=== PATIENT | male | born 1975 ===

== ENCOUNTER 2022-05-15 08:34 | Emergency (ER) | payer SELFPAY ==
--- NOTE | ~2022-05-15 | XR_ITS ---
EXAMINATION: XR RIBS, RIGHT CLINICAL INFORMATION: Fall with right rib pain COMPARISON: Chest radiograph 06/08/2017 TECHNIQUE: Single view chest with 4 additional views of the right ribs were obtained. FINDINGS: Lungs are clear. No consolidation, pneumothorax, or pleural effusion. The cardiomediastinal silhouette and pulmonary vasculature are normal. Osseous structures are unremarkable. Ribs are intact. No fractures are identified. Incidental note is made of 2 rounded calcifications adjacent to the chest wall beneath the clavicle of questionable significance but could be within the right shoulder joint or rotator cuff. If patient has shoulder pain shoulder radiographs may be XR/XR ribs RT min 3V w CXR1V IMPRESSION: Clear chest. No displaced rib fractures.
[2022-05-15 08:52] VITALS: BP 159/89; PULSE 71; RESP 20; TEMP 36.9; O2SAT 98; BMI 36.0
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
[2022-05-15] MEDS: Acetaminophen 325 MG TABLET 975 MG PO (11:12)
[2022-05-15] MEDS: Ibuprofen 600 MG TABLET PO (11:12)
[2022-05-15 11:32] VITALS: BP 128/71; PULSE 59; RESP 18; TEMP 36.6; O2SAT 95
== END 2022-05-15 12:21 | disposition home or self-care (01) ==
PROVIDERS: Emergency Provider Emergency Medicine
DX: S20.213A Contusion of bilateral front wall of thorax, initial encounter (principal); R42 Dizziness and giddiness; R51.9 Headache, unspecified; R07.81 Pleurodynia; V27.4XXA Motorcycle driver injured in collision with fixed or stationary object in traffic accident, initial encounter; Y93.9 Activity, unspecified; Y92.410 Unspecified street and highway as the place of occurrence of the external cause; Y99.9 Unspecified external cause status
CPT/HCPCS: 71101; 99283

== ENCOUNTER 2023-05-04 08:26 | Emergency (ER) | payer OTHER, SELFPAY ==
--- NOTE | ~2023-05-04 | XR_ITS ---
EXAMINATION: XR CHEST CLINICAL INFORMATION: Cough COMPARISON: Chest 05/15/2022 TECHNIQUE: AP upright portable view of the chest was obtained. 10:09 AM FINDINGS: Lung volumes are symmetric. No focal consolidation is seen. No evidence of pneumothorax, pleural effusion or overt pulmonary edema. The cardiac silhouette is mildly prominent. No acute osseous abnormalities are seen. XR/XR chest 1V IMPRESSION: Mildly prominent cardiac silhouette. No acute pulmonary findings are identified.
[2023-05-04 08:28] VITALS: BP 146/86; PULSE 80; RESP 20; TEMP 36.8; O2SAT 96; BMI 34.3
[2023-05-04 08:53] LABS: COVID-19 Test Negative (Negative); IDNOW Serial# BCCEAD1C
--- NOTE | 2023-05-04 10:01 | ED.GENADULT ---
HPI - General Adult General Chief complaint: Upper Respiratory Symptoms Stated complaint: nasal pressure Time Seen by Provider: 05/04/23 09:04 Source: patient Mode of arrival: ambulatory Limitations: no limitations History of Present Illness HPI narrative: 47 year old male remote hx of asthma presents w/ congestion, sinus pressure, cough, fatigue, malaise, subjective fevers and chills. All of which started 2 days ago and have been worsening. Patient denies any sick contacts. He reports shortness of breath with exertion however not at rest. Describes chest pressure as substernal pressure, nonradiating, not associated with pain particularly. Denies headache, vision changes, dizziness, weakness. Related Data Previous Rx's Medication Instructions Recorded albuterol sulfate 90 mcg/actuation 2 inh inhalation Q4-6H PRN 05/04/23 breath activated powder inhaler shortness of breath or wheezing #1 ea amoxicillin 875 mg-potassium 1 tab PO BID 7 days #14 tabs 05/04/23 clavulanate 125 mg tablet prednisone 20 mg tablet 40 mg (2 x 20 mg) PO DAILY 5 days 05/04/23 #10 tabs Allergies Allergy/AdvReac Type Severity Reaction Status Date / Time No Known Allergies Allergy Unverified 05/10/20 19:21 [No Known Allergies*] Review of Systems Review of Systems: Constitutional : No Weight loss, No Fever, No Chills, No Fatigue, No Malaise ENT/Mouth : No sore throat, No Rhinorrhea Eyes: No Eye Pain, No Swelling, No Redness Cardiovascular : No Chest Pain, No SOB, No Dyspnea on Exertion, No Orthopnea, No Edema, No Palpitations Respiratory : No Cough, No Sputum, No Wheezing Gastrointestinal : No Nausea, No Vomiting, No Diarrhea, No Constipation, No abdominal Pain, No Hematochezia, No Melena Genitourinary : No Dysuria, No Urinary Frequency, No Hematuria, Musculoskeletal : No joint pain, No Myalgias, No Joint Swelling Skin : No Skin Lesions, No rash Neuro : No Weakness, No Numbness, No Dizziness, No Headache Psych : No Anxiety/Panic, No Depression All other systems reviewed and are negative Yes all other systems are reviewed and are negative PMFSH Past Medical History Attestation statement: The following information was validated with the patient. Source: old records reviewed and nursing notes reviewed Social History Social History (Reviewed 05/15/22 @ 10:32 by ANA PAULA De Souza Advance Directives: No Advance Directives Information Provided: Yes Physical Exam ED Vital Signs: Vital Signs - 24 hr 05/04/23 08:28 05/04/23 12:32 Temperature 98.3 F 98.4 F Pulse Rate 80 74 Respiratory Rate 20 20 Blood Pressure 146/86 H 125/82 Pulse Oximetry 96 95 Oxygen Delivery Method Room Air Room Air BMI result Body Mass Index 34.3 Vital signs stable Appearance: Alert.? Oriented X3.? No acute distress.? Head: Normocephalic, atraumatic, no step-offs or deformities Eyes: Pupils equal, round and reactive to light.? CVS: Normal heart rate and rhythm.? Pulses normal.? Respiratory: No respiratory distress.? Breath sounds normal.? Abdomen: Soft and nontender.? Skin: Skin warm and dry.? Normal skin color.? Normal skin turgor.? Extremities: No lower extremity edema.? No calf ttp. 5/5 strength to bilateral upper and lower extremities Neuro: Oriented X 3.? No motor deficit.? No sensory deficit. CN 2-12 intact Course Reevaluation(s) Reevaluation #1: CBC appears to be within normal limits. Chemistry no acute findings requiring intervention. Troponin negative x2, EKG nonischemic, BNP within normal limits. Perc negative no indication for D-dimer. COVID and influenza negative. Chest x-ray with mild prominence to the cardiac silhouette. No acute pulmonary findings. Will discharge home with Augmentin for likely sinusitis. Educated patient on diagnosis and treatment plan, answered all question, patient verbalizes understanding. At this time patient will be discharged home, advised to return with new or worsening symptoms. Educated on worrisome signs and symptoms and when to return. At this time I feel comfortable discharge home. Time: 15:01 Medications Administered Discontinued Medications Generic Name Dose Route Start Last Admin Trade Name Freq PRN Reason Stop Dose Admin Acetaminophen 650 mg 05/04/23 10:12 05/04/23 10:43 Acetaminophen 325 Mg Tablet PO 05/04/23 10:13 650 mg ONCE ONE Administration Medical Decision Making Medical Decision Making [facility] Narrative: 1014 47-year-old male presents with URI sympoms / congestion x2 days with some associated chest pressure and dyspnea on exertion. Physical examination benign. Vital signs are stable. Concerns for upper respiratory infection versus sinusitis versus COVID-19 versus influenza versus viral illness. Unlikely pneumonia, PE as patient is PERC negative, unlikely ACS however will rule out with EKG and troponin. History and physical exam not consistent with CHF. No signs of dissection plan at this time labs, imaging, viral test Differential Diagnosis Differential Diagnoses: The differential diagnosis associated with the presentation includes Concerns for upper respiratory infection versus sinusitis versus COVID-19 versus influenza versus viral illness. Unlikely pneumonia, PE as patient is PERC negative, unlikely ACS however will rule out with EKG and troponin. History and physical exam not consistent with CHF. No signs of dissection Admission/Observation Consideration of admission/observation: Escalation of care including admission/observation considered No indication Lab Data MDM Lab Attestation statement: I reviewed the patient's lab results. 05/04/23 10:56 05/04/23 10:56 Labs: Lab Results 05/04/23 05/04/23 05/04/23 Range/Units 08:32 10:56 14:01 WBC 10.3 (4.8-10.8) X10*3/uL RBC 4.79 (4.60-5.80) X10*6/uL Hgb 15.3 (14.0-18.0) g/dl Hct 43.7 (42.0-52.0) % MCV 91.2 (80.0-98.0) fL MCH 31.9 (27.0-33.0) pg MCHC 35.0 (31.0-36.0) g/dl RDW 12.1 (11.0-16.0) % Plt Count 344 (160-400) X10*3/uL MPV 10.6 (9.4-12.4) fL Immature Gran % (Auto) 0.3 (0.0-0.4) % Neut % (Auto) 75.5 H (45-73) % Lymph % (Auto) 11.1 L (20-40) % [place] % (Auto) 6.0 (2-11) % Eos % (Auto) 6.2 H (0-4) % Baso % (Auto) 0.9 (0-2) % Lymph # (Auto) 1.1 L (1.2-4.9) X10*3/uL [place] # (Auto) 0.6 (0.1-1.2) X10*3/uL Eos # (Auto) 0.6 H (0.0-0.4) X10*3/uL Baso # (Auto) 0.1 (0.0-0.2) X10*3/uL Abs Immat Gran (auto) 0.03 (0.00-0.03) X10*3/uL Absolute Neuts (auto) 7.7 (2.0-8.3) x10*3/uL Absolute Nucleated RBC 0.000 (0.0-0.012) X10*3/uL Nucleated RBC % (auto) 0.0 (0.0-0.2) /100WBC Sodium 143 (135-145) mmol/L Potassium 3.4 (3.3-5.1) mmol/L Chloride 105 (96-108) mmol/L Carbon Dioxide 28 (22-29) mmol/L Anion Gap 13 (12-20) BUN 9 (9-16) mg/dL Creatinine 0.78 (0.5-1.4) mg/dL Estim Creat Clear Calc 121.4 Estimated GFR > 60 Random Glucose 111 (60-115) mg/dL Calcium 9.6 (8.4-10.2) mg/dL Total Bilirubin 0.3 (0.0-1.0) mg/dL AST 24 (5-37) U/L ALT 28 (0-40) U/L Alkaline Phosphatase 101 (39-117) U/L Troponin I High Sens 8.2 8.4 (<3.5-35.0) ng/L B-Natriuretic Peptide 32 (<100) pg/mL Total Protein 8.3 H (6.5-8.0) g/dL Albumin 4.6 (3.5-5.0) g/dL COVID-19 (LEOLA) Negative (Negative) COVID-19 Clin Com See Note Influenza Type A (ELENA) Negative (Negative) Influenza Type B (ELENA) Negative (Negative) Influenza A & B Note See Note Independent Interpretation I performed an independent interpretation of an: EKG and Plain X-Ray Radiology Impression Discussion of test interpretation with radiology: I have reviewed the radiologist's reading. Core Measures AMI core measures followed: Yes Measure exclusions: not indicated Critical Care Time Critical Care Time Critical Care Time: No Discharge Plan Discharge Clinical Impression: Sinusitis Patient Disposition: Home, Self-Care Instructions: Sinusitis (ED) Additional Instructions: Take your medications as prescribed. If you were prescribed antibiotics today, it is important that you take your medication to their entirety, do not skip any doses, do not finish them early. Follow-up with your primary care provider this week. Return to the emergency department with new or worsening symptoms. Such as fevers, chills, chest pain, shortness of breath, nausea, vomiting, dizziness, headache, vision changes, lethargy In case of emergency call 911 XR/XR chest 1V IMPRESSION: Mildly prominent cardiac silhouette. No acute pulmonary findings are identified. Prescriptions: New amoxicillin-pot clavulanate 875-125 mg tablet 1 tab PO BID 7 Days Qty: 14 0RF albuterol sulfate 90 mcg/actuation aerosol powdr breath activated 2 inh inhalation Q4-6H PRN (Reason: shortness of breath or wheezing) Qty: 1 0RF prednisone 20 mg tablet 40 mg PO DAILY 5 Days Qty: 10 0RF Referrals: Bailey Dutton MD [Primary Care Provider] - 2 days Stand Alone Forms: Work/School Release
--- NOTE | 2023-05-04 10:13 | ECG_ITS ---
Test Reason : SOB Blood Pressure : / mmHG Vent. Rate : 075 BPM Atrial Rate : 075 BPM P-R Int : 158 ms QRS Dur : 084 ms QT Int : 386 ms P-R-T Axes : 032 -02 000 degrees QTc Int : 431 ms Normal sinus rhythm Minimal voltage criteria for LVH, may be normal variant ( R in aVL ) Septal infarct , age undetermined Nonspecific T wave abnormality Abnormal ECG When compared with ECG of 08-JUN-2017 09:46, No significant change was found Referred By: Gwyn Stephenson Electronically Signed By:ARON MELGAR
[2023-05-04] MEDS: Acetaminophen 325 MG TABLET 650 MG PO (10:43)
[2023-05-04 11:00] LABS: MANUAL DIFF FLAG NO
[2023-05-04 11:03] LABS: Basophils Absolute Auto 0.1 X10*3/uL (0.0-0.2); Basophils Percent Auto 0.9 % (0-2); Eosinophils Absolute Auto 0.6 X10*3/uL (0.0-0.4); Eosinophils Percent Auto 6.2 % (0-4); Hematocrit 43.7 % (42.0-52.0); Hemoglobin 15.3 g/dl (14.0-18.0); Imm Gran Abs Auto 0.03 X10*3/uL (0.00-0.03); Imm Gran Pct Auto 0.3 % (0.0-0.4); Lymphocytes Absolute Auto 1.1 X10*3/uL (1.2-4.9); Lymphocytes Percent Auto 11.1 % (20-40); Mean Corpuscular Hemoglobin 31.9 pg (27.0-33.0); Mean Corpuscular Volume 91.2 fL (80.0-98.0); Mean Platelet Volume 10.6 fL (9.4-12.4); Monocytes Absolute Auto 0.6 X10*3/uL (0.1-1.2); Neutrophils Absolute Auto 7.7 x10*3/uL (2.0-8.3); Neutrophils Percent Auto 75.5 % (45-73); Platelet Count 344 X10*3/uL (160-400); Red Blood Count 4.79 X10*6/uL (4.60-5.80); Red Cell Distribution Width 12.1 % (11.0-16.0); White Blood Count 10.3 X10*3/uL (4.8-10.8)
[2023-05-04 11:17] LABS: Alanine Aminotransferase 28 U/L (0-40); Albumin Level 4.6 g/dL (3.5-5.0); Alkaline Phosphatase 101 U/L (39-117); Anion Gap 13 (12-20); Aspartate Amino Transferase 24 U/L (5-37); Bilirubin Total 0.3 mg/dL (0.0-1.0); Blood Urea Nitrogen 9 mg/dL (9-16); Calcium 9.6 mg/dL (8.4-10.2); Carbon Dioxide 28 mmol/L (22-29); Chloride 105 mmol/L (96-108); Creatinine Clr Calc Pharmacy 121.4; Estimated Glomerular Filt Rate > 60; Glucose Random 111 mg/dL (60-115); Potassium 3.4 mmol/L (3.3-5.1); Sodium 143 mmol/L (135-145); Total Protein 8.3 g/dL (6.5-8.0)
[2023-05-04 11:21] LABS: IDNOW Serial# 6674DD1D; Influenza A Negative (Negative); Influenza B2 Negative (Negative)
[2023-05-04 11:22] LABS: B Type Natriuretic Peptide 32 pg/mL (<100)
[2023-05-04 11:25] LABS: Troponin-I High Sensitivity 8.2 ng/L (<3.5-35.0)
[2023-05-04 12:32] VITALS: BP 125/82; PULSE 74; RESP 20; TEMP 36.9; O2SAT 95
[2023-05-04 14:30] LABS: Troponin-I High Sensitivity 8.4 ng/L (<3.5-35.0)
== END 2023-05-04 15:27 | disposition home or self-care (01) ==
PROVIDERS: Physician Assistant; Emergency Provider Student in an Organized Health Care Education/Training Program; PCP Internal Medicine
DX: J32.9 Chronic sinusitis, unspecified (principal); R05.9 Cough, unspecified; R06.02 Shortness of breath; R94.31 Abnormal electrocardiogram [ECG] [EKG]; Z20.822 Contact with and (suspected) exposure to COVID-19; Z20.828 Contact with and (suspected) exposure to other viral communicable diseases; Z79.899 Other long term (current) drug therapy
CPT/HCPCS: 36415; 71045; 80053; 83880; 84484; 85025; 87502; 87635; 93005; 99283; 99284

== ENCOUNTER 2023-12-25 14:59 | Outpatient (REF) | payer OTHER, SELFPAY ==
--- NOTE | 2023-12-25 | EMG_ITS ---
Chief complaint: left arm numbness; neck pain History of CTS surgeries; right 2 years ago, left just last August 2023. Reason for referral: Evaluate for ulnar neuropathy vs radiculopathy Referred by: Dr. Rocha Procedure done: Bilateral upper extremity NCS/EMG Precautions and/or limitations: None The limb temperature was monitored continuously and remained between 32-36 degrees C during the performance of the NCS. Nerve Conduction Studies Anti Sensory Summary Table ?Stim Site NR Onset (ms) Norm Onset (ms) Peak (ms) Norm Peak (ms) O-P Amp (?V) Norm O-P Amp Site1 Site2 Delta-0 (ms) Dist (cm) Mckinley (m/s) Norm Mckinley (m/s) Left Median Anti Sensory (2nd Digit) Wrist ? 3.3 4.2 <3.6 16.0 >10 Wrist 2nd Digit 3.3 14.0 42 Right Median Anti Sensory (2nd Digit) Wrist ? 3.4 4.2 <3.6 15.1 >10 Wrist 2nd Digit 3.4 14.0 41 Right Radial Anti Sensory (Thumb) Forearm ? 1.3 1.8 <3.1 2.9 Forearm Thumb 1.3 0.0 Left Ulnar Anti Sensory (5th Digit) Wrist ? 2.4 2.9 <3.7 16.2 >15.0 Wrist 5th Digit 2.4 14.0 58 Right Ulnar Anti Sensory (5th Digit) Wrist ? 2.3 2.9 <3.7 18.2 >15.0 Wrist 5th Digit 2.3 14.0 61 Motor Summary Table ?Stim Site NR Onset (ms) Norm Onset (ms) O-P Amp (mV) Norm O-P Amp iAmp (mV) Amp (1st) (%) Site1 Site2 Delta-0 (ms) Dist (cm) Mckinley (m/s) Norm Mckinley (m/s) Left Median Motor (Abd Poll Brev) Wrist ? 4.5 <3.9 7.9 >4.5 9.4 100.0 Elbow Wrist 3.9 21.0 54 >45 Elbow ? 8.4 7.3 8.8 92.4 Right Median Motor (Abd Poll Brev) Wrist ? 4.5 <3.9 9.4 >4.5 10.9 100.0 Elbow Wrist 3.9 20.0 51 >45 Elbow ? 8.4 9.1 10.6 96.8 Left Ulnar Motor (Abd Dig Minimi) Wrist ? 2.7 <3.0 6.3 >5 6.9 100.0 B Elbow Wrist 3.2 20.0 63 >45 B Elbow ? 5.9 7.8 8.8 123.8 A Elbow B Elbow 1.3 10.0 77 >45 A Elbow ? 7.2 7.7 8.6 122.2 Right Ulnar Motor (Abd Dig Minimi) Wrist ? 2.4 <3.0 9.1 >5 10.5 100.0 B Elbow Wrist 3.6 19.0 53 >45 B Elbow ? 6.0 8.8 10.3 96.7 A Elbow B Elbow 1.1 10.0 91 >45 A Elbow ? 7.1 8.8 10.3 96.7 EMG ?Side Muscle Nerve Root Ins Act Fibs Psw Amp Dur Poly Recrt Int Pat Comment Right 1stDorInt Ulnar C8-T1 Nml Nml Nml Nml Nml 0 Nml Complete Right FlexCarRad Median C6-7 Nml Nml Nml Nml Nml 0 Nml Complete Right Biceps Musculocut C5-6 Nml Nml Nml Nml Nml 0 Nml Complete Right Triceps Radial C6-7-8 Nml Nml Nml Nml Nml 0 Nml Complete Right Deltoid Axillary C5-6 Nml Nml Nml Nml Nml 0 Nml Complete Left 1stDorInt Ulnar C8-T1 Nml Nml Nml Nml Nml 0 Nml Complete Left FlexCarRad Median C6-7 Nml Nml Nml Nml Nml 0 Nml Complete Left Biceps Musculocut C5-6 Nml Nml Nml Nml Nml 0 Nml Complete Left Triceps Radial C6-7-8 Nml Nml Nml Nml Nml 0 Nml Complete Left Deltoid Axillary C5-6 Nml Nml Nml Nml Nml 0 Nml Complete Paraspinal EMG ?Side Muscle Nerve Root Ins Act Fibs Psw Comment Right Cervical Upper Rami Nml Nml Nml Right Cervical Mid Rami Nml Nml Nml Right Cervical Lower Rami Nml Nml Nml Left Cervical Upper Rami Nml Nml Nml Left Cervical Mid Rami Nml Nml Nml Left Cervical Lower Rami Incr 1+ 1+ FINDINGS: Bilateral median motor nerves showed prolonged distal latency, normal amplitude and normal conduction velocity. Bilateral median sensory nerve showed prolonged peak latency. All other nerves tested were within normal. Concentric needle EMG was performed in selected muscles of the bilateral upper extremities and cervical paraspinals. Study revealed signs of electric abnormalities as shown in the table below. Left lower cervical paraspinals showed increased insertional activity, PSWs and fibrillations. IMPRESSION: 1. This is an abnormal study. 2. Bilateral median nerves still show prolonged latencies. 3. PSWs on paraspinals are suggestive for left lower cervical radiculopathy. Although this could be seen in normal subjects as well. No other denervation seen on muscles on upper extremities. 4. No electrodiagnostic evidence for ulnar neuropathy or brachial plexopathy. CLINICAL COMMENT: Would be useful to compare with previous EMG/NCS. Further clinical correlation or evaluation of cervical spine recommended. Thank you for your kind referral. Carmen Ferreira MD, LANEY Board Certified, [place] [employer] and Rehabilitation (ABPMR) Board Certified, [place] Board of Electrodiagnostic Medicine (ABEM) CODIN [id number] x 2 MTDD
== END 2023-12-25 15:00 | disposition home or self-care (01) ==
LOC: HO.NEURO 14:59
PROVIDERS: PCP Internal Medicine; Visit Provider Orthopaedic Surgery
DX: G56.22 Lesion of ulnar nerve, left upper limb (principal); G56.21 Lesion of ulnar nerve, right upper limb
CPT/HCPCS: 95886; 95911

== ENCOUNTER → 2023-12-25 15:02 | Outpatient (BNV) | payer OTHER, SELFPAY | PROVIDERS: PCP Internal Medicine; Visit Provider Physical Medicine & Rehabilitation | DX: G56.13 Other lesions of median nerve, bilateral upper limbs (principal) | CPT/HCPCS: 95886; 95911 ==

== ENCOUNTER 2024-08-02 10:14 | Outpatient (AMB) | payer OTHER, SELFPAY ==
--- NOTE | 2024-08-02 10:45 | AM.OFFWIN_ITS ---
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 Allergies No Known Allergies [No Known Allergies*] Allergy (Verified 08/02/24 10:50) Medication List - Last Reconciled 08/02/24 by Marjorie Hamlin, FLOOR ASSOCIATE- acetaminophen ER 650 mg PO TID albuterol sulfate 90 mcg/actuation 2 inhalations inhalation Q4-6H PRN bupropion HCl XL 150 mg PO DAILY carvedilol 3.125 mg PO BID cholecalciferol (vitamin D3) 50 mcg PO DAILY clonidine HCl 0.1 mg PO DAILY diclofenac sodium 1% topical dulaglutide (Trulicity) mg subcut gabapentin 300 mg PO TID PRN losartan 100 mg PO DAILY oxycodone mg PO spironolactone 25 mg PO DAILY trazodone 50 mg PO BEDTIME valacyclovir 1,000 mg PO Q8H 7 days Do you need a note to return to daycare/school/sports/work: No HPI HPI Comments 2 History of Present Illness0 Details 48-year-old male here today with complai nts of a painful rash on his right lower back and abdomen that started about 10 days ago. The rash is worse since onset. It was not itchy. It is quite painful. He is taking Tylenol to help the pain without any effect. He denies systemic symptoms such as fever, chills. No one else has this rash. Exam: Plan Treat with acyclovir 1 g t.i.d. for 7 days advised to take with food to avoid GI upset. We will also prescribe gabapentin 300 mg TID prn for pain. Advised that pain from shingles can last longer than 10 days and if this is the case he will need to follow up with his primary care for further medication refills. His blood pressure was noted to be elevated however he is in acute pain. I have advised for him to monitor his blood pressure at home and or seek care with his primary care provider for blood pressure recheck to ensure that this returns to normal. Educated on reasons to return to the office or seek additional care. This note is constructed using voice recognition software. While every effort has been made to ensure accuracy in tooth cutter spur, still errors may have been included Sometimes, these errors may affect the content or meaning of the given sentence . Physical Exam Vital Signs: Last Vital Signs Pulse 73 08/02/24 10:53 Resp 14 08/02/24 10:53 BP 168/89 H 08/02/24 10:53 Pulse Ox 95 08/02/24 10:53 Oxygen Delivery Method Room Air 08/02/24 10:53 BMI result Body Mass Index 38.3 Assessment & Plan Assessment & Plan (1) Shingles: Code(s): B02.9 - Zoster without complications Qualifiers: Herpes zoster complications: without complications Qualified Code(s): B 02.9 - Zoster without complications Plan . Medications: New 2 valacyclovir 1,000 mg PO Q8H 7 days 21 tabs 0RF gabapentin 300 mg PO TID PRN 30 caps 0RF pain Discontinued 2 prednisone Discontinued Reason: Patient Completed Course 40 mg (2 x 20 mg) PO DAILY 5 days 10 tabs 0RF amoxicillin-pot clavulanate 875-125 mg Discontinued Reason: No Longer Medically Relevant 1 tab PO BID 7 days 14 tabs 0RF Patient Instructions: Is shingles contagious? Yes and no. It is NOT possible to catch shingles from someone who has the rash. But it is possible to catch the virus and then get sick with chickenpox. Shingles and chickenpox are caused by the same virus. You probably will NOT catch the virus (or get chickenpox) if you: -Had chickenpox or shingles in the past -Had the chickenpox vaccine -Were born before 1979 (most people born before 1979 have had chickenpox even if they dont remember it) If you have never had chickenpox or the chickenpox vaccine, be careful around anyone with shingles. Do not touch their rash. If you do, you could get sick with chickenpox. In rare cases, people can even get chickenpox from just being near someone with shingles. This is most likely in people who cannot fight infections well. Coding Level of Care Code Est Pt Level 3 (44161) Diagnoses Herpes zoster without complication B02.9 Herpes zoster complications: without complications
[2024-08-02 10:53] VITALS: BP 168/89; PULSE 73; RESP 14; O2SAT 95; BMI 38.3
== END 2024-08-02 13:10 | disposition home or self-care (01) ==
LOC: HO.HMCWIW 10:14
PROVIDERS: PCP Internal Medicine; Visit Provider Nurse Practitioner Family
DX: B02.9 Zoster without complications (principal)

== ENCOUNTER → 2024-08-02 10:14 | Outpatient (BNVA) | payer OTHER, SELFPAY | PROVIDERS: PCP Internal Medicine; Visit Provider Nurse Practitioner Family | DX: B02.9 Zoster without complications (principal) | CPT/HCPCS: 99212 ==

== ENCOUNTER 2025-05-10 11:08 | Outpatient (REF) | payer OTHER, SELFPAY ==
--- NOTE | 2025-05-10 11:13 | EMG_ITS ---
Chief complaint: Patient has history of cervical ACDF, left carpal tunnel release, left cubital tunnel release. He was doing well after ACDF. Neck pain resolved. However after a few months, started having left shoulder pain, and when severe it can radiate down to the hand with paresthesias. Previous EMG done by me 12/25/2023 reviewed. Reason for referral: Evaluate for ulnar neuropathy or carpal tunnel Referred by: Heather NUNO Procedure done: Left upper extremity NCS/EMG Precautions and/or limitations: Previous cervical surgery Danish speaking, seen with manager nicu. The limb temperature was monitored continuously and remained between 32-36 degrees C during the performance of the NCS. Ulnar motor NCS was performed with moderate elbow flexion between 70-90 degrees, with across-elbow distance of 10 cm. Nerve Conduction Studies Anti Sensory Summary Table ?Stim Site NR Onset (ms) Norm Onset (ms) Peak (ms) Norm Peak (ms) O-P Amp (?V) Norm O-P Amp Site1 Site2 Delta-0 (ms) Dist (cm) Mckinley (m/s) Norm Mckinley (m/s) Left Median Anti Sensory (2nd Digit) Wrist ? 2.6 3.4 <3.6 24.5 >10 Wrist 2nd Digit 2.6 14.0 54 Left Radial Anti Sensory (Thumb) Forearm ? 1.6 2.3 <3.1 17.9 Forearm Thumb 1.6 0.0 Left Ulnar Anti Sensory (5th Digit) Wrist ? 1.8 2.8 <3.7 16.3 >15.0 Wrist 5th Digit 1.8 14.0 78 Motor Summary Table ?Stim Site NR Onset (ms) Norm Onset (ms) O-P Amp (mV) Norm O-P Amp iAmp (mV) Amp (1st) (%) Site1 Site2 Delta-0 (ms) Dist (cm) Mckinley (m/s) Norm Mckinley (m/s) Left Median Motor (Abd Poll Brev) Wrist ? 3.6 <3.9 9.4 >4.5 11.5 100.0 Elbow Wrist 4.4 21.0 48 >45 Elbow ? 8.0 8.6 10.7 91.5 Left Ulnar Motor (Abd Dig Minimi) Wrist ? 2.7 <3.0 6.6 >5 7.8 100.0 B Elbow Wrist 3.6 18.0 50 >45 B Elbow ? 6.3 6.5 7.8 98.5 A Elbow B Elbow 1.3 10.0 77 >45 A Elbow ? 7.6 6.6 8.1 100.0 EMG ?Side Muscle Nerve Root Ins Act Fibs Psw Amp Dur Poly Recrt Int Pat Comment Left 1stDorInt Ulnar C8-T1 Nml Nml Nml Nml Nml 0 Nml Complete Left FlexCarRad Median C6-7 Nml Nml Nml Nml Nml 0 Nml Complete Left Biceps Musculocut C5-6 Nml Nml Nml Nml Nml 0 Nml Complete Left Triceps Radial C6-7-8 Nml Nml Nml Nml Nml 0 Nml Complete Left Deltoid Axillary C5-6 Nml Nml Nml Nml Nml 0 Nml Complete Paraspinal EMG ?Side Muscle Nerve Root Ins Act Fibs Psw Comment Left Cervical Upper Rami Nml Nml Nml Left Cervical Mid Rami Nml Nml Nml Left Cervical Lower Rami Nml Nml Nml FINDINGS: All motor and sensory nerves tested showed normal latencies, amplitudes and conduction velocities. Concentric needle EMG was performed in selected muscles of the left upper extremity and cervical paraspinals. Study did not reveal signs of electric abnormalities as shown in the table above. IMPRESSION: 1. This is a normal study. 2. There is no electrodiagnostic evidence for median neuropathy, ulnar neuropathy, brachial plexopathy, or cervical radiculopathy. Clinical comment: Today's study is normal. No denervation seen on paraspinals. Normal nerve conduction studies of both median and ulnar nerves. Thank you for your kind referral. Carmen Ferreira MD, LANEY Board Certified, [place] [employer] and [employer] (ABPMR) Board Certified, [place] Board [employer] Electrodiagnostic Medicine (ABEM) [place] [id number] [facility]
--- OUTSIDE RECORDS SUMMARY | 2025-05-10 14:23 | XMS_ITS ---
Author Name [facility] Organization Unknown Care Team Organization Name Specialty Phone Email Start Date End Da te [facility] D[facility] 10/29/2022 04/11/2024 [facility] KYLE BOJORQUEZ Primary Care 07/01/2022
--- OUTSIDE RECORDS SUMMARY | 2025-05-10 14:23 | XMS_ITS | Encounter Summary ---
Author Organization [facility] Address [address] [place] [address] Care Team Providers Care Data Keyer Name Role Phone Unavailable Primary Care Provider Unavailabl e Encounter Details Date Type Department Care Team (Latest Contact Info) Description 01/10/2021 [facility] CONVERSIONS Dental, Provider, DDS Social History Tobacco Use Types Packs/Day Years Used Date Smoking Tobacco: Never Assessed Sex and Gender Information Value Date Recorded Sex Assigned at Male 06/23/2022 10:32 AM EDT Legal Sex Male 10:32 AM EDT Gender Identity Male 06/23/2022 10:32 AM EDT Sexual Orientation Straight 06/23/2022 10 :32 AM EDT documented as of this encounter Plan of Treatment Not on file documented as of this encounter Visit Diagnoses Not on filedocumented in this encounter
--- OUTSIDE RECORDS SUMMARY | 2025-05-10 14:23 | XMS_ITS | Clinical Summary ---
Author Organization [facility] [address] [place] [address] Address [address] [place] [address] Phone Care Team Providers Care Health Editor Name Role Phone Bailey Driver MD Primary Care Prov ider Allergies Active Allergy Reactions Criticality Noted Date Comments Thiazides Other 10/09/2019 THIAZIDE-TYPE DIURETICS Hypokalemia Medications diclofenac (VOLTAREN) 1 % topical gel Apply 1 Dose topically 3 times daily as needed (pain). 07/06/20 23 Active glucose blood (Freestyle [employer] Test Strips) test strip Use to test blood sugar once daily 04/04/20 22 Active buPROPion XL (WELLBUTRIN XL) 150 mg 24 hr tablet TAKE 1 TABLET BY MOUTH EVERY DAY IN THE MORNING 05/05/20 21 Active traZODone (DESYREL) 50 mg tablet Take 1 tablet by mouth at bedtime as needed. 05/18/20 21 Active FREESTYLE LANCETS MISC USE TO TEST BLOOD SUGAR ONCE DAILY 01/08/20 21 Active losartan (COZAAR) 100 mg tablet Take 1 tablet (100 mg total) by mouth 1 (one) time each day in the evening. 90 tablet 1 10/10/19 25 Active albuterol HFA (PROAIR HFA ; PROVENTIL HFA ; VENTOLIN HFA) 90 mcg/actuation inhalerIndicati ons:Primary hypertension Inhale 2 puffs by mouth every 6 (six) hours if needed for wheezing. 6.7 g 1 10/10/19 25 Active multivitamin tablet Take 1 tablet by mouth 1 (one) time each day. Active acetaminophen (TYLENOL) 500 mg tablet Take 2 tablets (1,000 mg total) by mouth every 6 (six) hours if needed for mild pain. Active cloNIDine (CATAPRES) 0.1 mg tablet Take 1 Tablet by mouth as needed (systolic BP > 150). - Oral 90 tablet 12/22/19 25 Active cholecalciferol (VITAMIN D-3) 50 mcg (2,000 unit) capsule TAKE 1 CAPSULE (2,000 UNITS TOTAL) BY MOUTH ONCE DAILY 90 capsule 1 02/24/20 25 Active carvediloL (Coreg) 12.5 mg tablet Take 1 tablet (12.5 mg total) by mouth 2 (two) times a day with meals. 180 each 03/08/20 25 Active semaglutide (Ozempic) 0.25 mg or 0.5 mg (2 mg/3 mL) injection penIndications: Type 2 diabetes mellitus with diabetic microalbuminuri a, without long-term current use of insulin ([facility] V24, [facility] V28) Inject 0.25 mg under the skin every 7 (seven) days. 3 Pen 1 03/30/20 25 Active spironolactone (ALDACTONE) 50 mg tablet TAKE 1 TABLET BY MOUTH 1 TIME EACH DAY. 90 tablet 1 04/12/20 25 Active cloNIDine (Bdhhemff-ZAK-3 ) 0.1 mg/24 hrIndications:P rimary hypertension Place 1 patch on the skin 1 (one) time per week. 12 patch 04/27/20 25 Active metFORMIN XR (GLUCOPHAGE-XR) 500 mg 24 hr tablet Take 1 tablet (500 mg total) by mouth 1 (one) time each day. Do not crush, chew, or split. 90 each 3 05/05/20 25 Active spironolactone (Aldactone) 50 mg tablet Take 1 tablet (50 mg total) by mouth 1 (one) time each day. 90 each 1 10/10/19 25 025 Discontinued metFORMIN XR (GLUCOPHAGE-XR) 500 mg 24 hr tablet Take 1 tablet (500 mg total) by mouth 1 (one) time each day with breakfast. Do not crush, chew, or split. 30 each 5 11/10/19 25 025 Discontinued(Re order) cloNIDine (Ljizouvl-PSG-8 ) 0.1 mg/24 hrIndications:P rimary hypertension Place 1 patch on the skin 1 (one) time per week. 4 each 2 02/02/20 25 025 Discontinued(Re order) metFORMIN XR (GLUCOPHAGE-XR) 500 mg 24 hr tablet Do not crush, chew, or split. 90 each 2 04/20/20 25 025 Discontinued(Re order) Active Problems Problem Noted Date Diagnosed Date Left shoulder pain 03/15/2025 Assessment & Plan (03/15/2025 11:22 AM EDT): Mr. Sandoval Phipps describes about 5 months of left shoulder pain. It bothers him the most when he raises his arm up overhead. He is tender around the left shoulder capsule and even passive range of motion of the left shoulder does cause his pain. Of note he is 11 months status post C5-6 and C6-7 anterior cervical discectomy and fusion with plating. His preoperative symptoms did improve but about 5 months ago he developed this shoulder pain. I will send him for some x-rays of the shoulder and send a referral to orthopedics. Mixed hyperlipidemia 02/06/2025 Elevated blood pressure reading 02/06/2025 Right knee pain 08/10/2024 Osteoarthritis 05/24/2024 Overview (05/24/2024): Right knee s/p injury, spine Hypertension 05/24/2024 Cervical spondylosis 01/19/2024 Overview (05/24/2024): Last Assessment & Plan: Patient scheduled a follow-up appointment because he feels his neck pain (radiating laterally to the upper traps), and b/l arm symptoms have been getting worse. At his last office visit we talked about trying physical therapy prior to C5-6, C6-7 ACDF, see if he can get improvement with conservative treatment prior to fusing 2 levels in his neck. Patient states he did not get a chance to start PT yet, his mom was sick and unfortunately passed about a week ago. His A1c 1 month ago was 4.7. No new health issues. He is scheduled for revision carpal tunnel release on the left as well as left ulnar nerve decompression at the elbow March [address] Rocha. After again reviewing his symptoms, C-spine MRI imaging on the computer, surgical discussion, we decided it is best for him to still try the physical therapy for now. He has upcoming surgery with Dr. Rocha, which likely would be a quicker recovery, then we could do his C5-6, C6-7 fusion if he has not improved with PT. Also it would give us a chance to see what improvement he has in the left arm prior to his neck surgery. All questions answered, his also had some concerns and questions. I asked him to call with any concerns, questions or worsening symptoms. New PT order printed out for pt. Assessment & Plan (03/15/2025 11:20 AM EDT): Mr. Luigi Phipps is now 11 months status post C5-6 and C6-7 anterior cervical discectomy and fusion with plating. He says that his preoperative symptoms have resolved. He no longer has any neck pain. His main complaint is pain in the left shoulder that travels down to the biceps into the radial forearm. He does not feel like it is coming from his neck. He is neurologically intact. Cervical spine x- rays show that his plate and screws at C5, C6 and C7 are all in good position. There does not appear to be significant bone growth at either level. Reviewed the films with Dr. Munoz and see if she thinks an external bone growth stimulator is a necessary or good idea. I told the patient I will be back in touch regarding Dr. Munoz's thoughts on his x-rays. Cubital tunnel syndrome on left 01/13/2024 Cervical radiculopathy 01/13/2024 Stage 3a chronic kidney disease ([facility] V24, [facility] V28) 08/19/2023 Hematuria 09/30/2021 Overview (05/24/2024): Microscopic. Ultrasound was negative for nephrolithiasis. Referred to urology. Type II diabetes mellitus wi th renal manifestations ([facility] V24, [facility] V28) 12/12/2020 Microalbuminuria 12/12/2020 Left carpal tunnel syndrome 04/13/2020 Overview (05/24/2024): Right moderate to severe per EMG/NCS 03/2020 Osteoarthritis of right knee 10/06/2019 Anxiety 09/30/2019 Depression 09/30/2019 Renal cyst, left 01/20/2019 Overview (05/24/2024): Noted on follow up U/S 01/18/19. Vitamin D deficiency 11/30/2018 Left ventricular hypertrophy 09/07/2018 Obstructive sleep apnea 03/17/2018 Overview (05/24/2024): UNTREATED (MAY 2021) [facility] Home Polysomnogram: Date 03/15/2018; AHI 51, Unclassified apneas 0; Obstructive apneas 46; Central apneas 0; Mixed apneas 0; hypopneas 164; average oxygen saturation 91% (lowest 71% with saturations <88% for 5% or more of study) [facility] Polysomnogram treatment study. Date 04/15/2018. SE 87 % SM 888 %; spent 29 % of the study in REM. On CPAP @ 16; RDI 2.3 (AHI 2.3), Central apneas 2; Obstructive apneas 0; Mixed apneas 0; hypopneas 0; RERAs 0; and, average oxygen saturation was 94%. For the entire study, PLMs ~21. - Obstructive Sleep Apnea - severe; mostly hypopneas with obstructive apneas; with sleep related hypoventilation by 2018 home polysomnogram. - CPAP corrective at 16. Low back pain 03/08/2018 Morbid obesity with BMI of 4 0.0-44.9, adult ([facility] V24, [facility] V28) 10/28/2017 Encounters Date Type Department Care Team Description 05/05/2025 Telephone Adult Medicine [address] [phone] Bailey Han MD 05/03/2025 Telephone Orthopedic Surgery [address] [place] [address] Heather Barton PA 04/11/2025 1:15 PM EDT Office Visit Adult Medicine [address], [place] [phone] Brook Cabrera PA Elevated blood pressure reading (Primary Dx); Primary hypertension; Type 2 diabetes mellitus with diabetic microalbuminuria, without long-term current use of insulin ([facility] V24, [facility] V28) 04/07/2025 2:00 PM EDT Office Visit Orthopedic Surgery [facility] [address] [facility] [address] [place] [address] Heather Barton PA Arm paresthesia, left (Primary Dx); Left shoulder pain, unspecified chronicity 03/21/2025 10:20 AM EDT - 03/21/2025 11:59 PM EDT Hospital Encounter [facility] Xray [address] [place] [address] Left shoulder pain, unspecified chronicity Discharge Disposition: Home or Self Care 03/16/2025 [facility] [address] [facility] [address] [place] [address] Salo Rodas PA 03/15/2025 11:00 AM EDT Office Visit [facility] [address] [phone] Salo Rodas PA Left shoulder pain, unspecified chronicity (Primary Dx); Cervical spondylosis 03/15/2025 9:49 AM EDT - 03/15/2025 11:59 PM EDT Hospital Encounter [facility] Xray [address] [place] [address] Cervical spondylosis Discharge Disposition: Home or Self Care 03/08/2025 10:30 AM EDT Office Visit Adult Medicine [address] [phone] Broko Cabrera PA Elevated blood pressure reading (Primary Dx); Primary hypertension; Chronic neck pain; Primary osteoarthritis involving multiple joints; Type 2 diabetes mellitus with diabetic microalbuminuria, without long-term current use of insulin ([facility] V24, [facility] V28); Stage 3a chronic kidney disease ([facility] V24, [facility] V28); Morbid obesity with BMI of 40.0-44.9, adult ([facility] V24, [facility] V28) 03/03/2025 8:30 AM EDT [facility] [address] [phone] Elsie Aldana MD Obstructive sleep apnea (Primary Dx); Morbid obesity with BMI of 40.0-44.9, adult ([facility] V24, [facility] V28); Chronic bronchitis, unspecified chronic bronchitis type ([facility] V24, [facility] V28); Secondhand smoke exposure; [place] (dyspnea on exertion) 03/03[facility] [address] [facility] [address] [place] [address] Guerda Salmon [place] from Last 3 Months Immunizations Name Administration Dates Next Due Influenza Quadravalent, MDCK , 0.5ml, preservative free (Flucelvax) 6mo and older 07/24/2022,06/13/2021 Influenza Quadravalent, MDCK , 0.5ml, with preservative (Flucelvax) 6mo and older 08/31/2017 Influenza trivalent, 0.5mL, preservative free (Fluarix; FluLaval; Fluzone) ages 6mo and older (Afluria) 3 years and older 06/13/2024 Influenza trivalent, with pr eservative (Fluzone; Afluria) 6mo and older 07/16/2019,06/04/2018 PPD Test 12/15/2018 Pneumococcal polysaccharide 23 valent (Pneumovax 23) 2yo and older 06/13/2021 Tdap Tetanus diptheria acell ular pertussis (Boostrix; Adacel) 7yo and older 12/15/2018 Surgical History Surgery Date Site/Laterality Comments KNEE ARTHROSCOPY 2012 Right ?repair vs meniscectomy s/p injury HERNIA REPAIR 08/04/2018 umbilical hernia repair CHOLECYSTECTOMY N/A NECK SURGERY 04/18/2024 C5-C7 acdf, Dr. Munoz Medical History Medical History Date Comments Hypertension DX:Hypertension Osteoarthritis DX:Osteoarthriti s; COMMENT: Right knee s/p injury Snoring 08/31/2017 DX:Snoring Anxiety and depression DX:Anxiet y and depression DM (diabetes mellitus) ([facility] V24, [facility] V28) DX:DM (diabetes mellitus) (H CC) HTN (hypertension) DX:HTN (hyper tension) Gastritis DX:Gastritis Rheumatoid arthritis ([facility] V24, [facility] V28) DX:Rheumatoid arthritis (HCC ) Change in weight DX:Change in we ight Leg pain DX:Leg pain Kidney stones DX:Kidney stones Joint pain DX:Joint pain Left ventricular hypertrophy 09/07/2018 DX: Left ventricular hypertrophy Stage 3a chronic kidney dise ase ([facility] V24, [facility] V28) 08/19/2023 DX:Stage 3a chronic kidney disease (HCC) Obstructive sleep apnea 03/17/2018 DX:Obstr uctive sleep apnea; COMMENT: UNTREATED (MAY 2021) [facility] Home Polysomnogram: Date 03/15/2018; AHI 51, Unclassified apneas 0; Obstructive apneas 46; Central apneas 0; Mixed apneas 0; hypopneas 164; average oxygen saturation 91% (lowest 71% with saturations <88% for 5% or more of study) [facility] Polysomnogram treatment study. Date 04/15/2018. SE 87 % SM 888 %; spent 29 % of the study in REM. On CPAP * Left carpal tunnel syndrome 04/13/2020 DX:L eft carpal tunnel syndrome; COMMENT: Right moderate to severe per EMG/NCS 03/2020 Family History Medical History Relation Name Comments Other: parveen Father emphysema, CAD s/p AK (first one at age between 30s and 40s) Other: parveen Mother CAD Coronary artery disease Paternal Grandmother s/p AK and CVA Relation Name Status Comments Daughter 1 Alive Daughter 2 Alive Father Mother Alive Paternal Grandfather Paternal Grandmother Son Alive Social History Tobacco Use Types Packs/Day Years Used Date Smoking Tobacco: Never Smokeless Tobacco: Never Tobacco Cessation:Counseling Given: Not Answered Alcohol Use Standard Drinks/Week Comments No 0 (1 standard drink = 0.6 oz pur e alcohol) Housing Instability Answer Date Recorde d Are you worried that in the next 2 months you may not have stable housing? No 02/06/2025 Food Access & Nutrition Answer Date Rec orded Do you have access to a vari ety of food including fruits and vegetables? Yes 02/06/2025 Health Literacy Answer Date Recorded How often do you need to hav e someone help you when you read instructions, pamphlets, or other written material from your doctor or pharmacy? Never 02/06/2025 Caregiver: How often do you need to have someone help you when you read instructions, pamphlets, or other written material from your doctor or pharmacy? Not on file 02/06/2025 Financial Risk Answer Date Recorded How hard is it for you to pa y for the very basics like food, housing, medical care, and air conditioning / heating? Not very hard 02/06/2025 Transportation Answer Date Recorded Has the lack of transportati on kept you from meetings, work, or from getting things needed for daily living? No Has the lack of transportati on kept you from medical appointments or from getting medications? No 02/06/2025 Social Isolation Answer Date Recorded How often do you feel lonely or isolated from th ose around you? Never 02/06/2025 Food Risk Answer Date Recorded Within the past 12 months we worried whether our food would run out before we got money to buy more. Never true 02/06/2025 Within the past 12 months th e food we bought just didn't last and we didn't have money to get more. Never true 02/06/2025 Dependent Care Answer Date Recorded Do you need help finding or paying for care for your loved ones. For example, childcare administrator or elderly care for an older adult? No 02/06/2025 Education Answer Date Recorded Do you think completing more education or training, like finishing a GED, going to college, or learning a trade, would be helpful for you? No 02/06/2025 Employment and Income Answer Date Recor ded During the last four weeks, have you been actively looking for work? No 02/06/2025 Living Situation Answer Date Recorded What is your living situation? 0 02/06/2025 Sex and Gender Information Value Date Recorded Sex Assigned at Male 07/04/2024 7:02 AM EST Legal Sex Male 8:34 PM EST Gender Identity Male 07/04/2024 7:01 AM EST Sexual Orientation Straight 07/04/2024 7: 01 AM EST Obstetrics History Last Filed Vital Signs Vital Sign Reading Time Taken Comments Blood Pressure 136/78 04/11/2025 1:49 PM EDT Pulse 70 04/11/2025 1:16 PM EDT Temperature 36.3 C (97.4 F) 04/11/2025 1:16 PM EDT Respiratory Rate 15 04/11/2025 1:16 PM EDT Oxygen Saturation 96% 04/11/2025 1:16 PM EDT Inhaled Oxygen Concentration - - Weight 109 kg (240 lb) 04/11/2025 1:16 PM EDT Height 162.6 cm (5' 4 ) 04/11/2025 1:16 PM EDT Body Mass Index 41.2 04/11/2025 1:16 PM EDT Plan of Treatment Upcoming Encounters Date Type Department Care Team (Late st Contact Info) Description 05/23/2025 9:00 AM EDT Medication Management Adult Medicine [address] [phone] Mona Maya, PharmD [address] [place] [address] 06/16/2025 10:15 AM EDT Ancillary Procedure Pulmonolgy - [address] [phone] 06/16/2025 11:00 AM EDT Office Visit Pulmon[address] [phone] Elsie Aldana MD [address] [place] [address] 07/13/2025 1:00 PM EST Office Visit Adult Medicine [address] [phone] Bailey Driver MD [address] [place] [address] Health Maintenance Due Date Last Done Comments Hepatitis B Vaccines (1 of 3 - 19+ 3-dose series) 1996 Pneumococcal Vaccine: Pediatrics (0 to 5 Years) and At-Risk Patients (6 to 49 Years) (2 of 2 - PCV) 06/13/2022 06/13/2021 Influenza Vaccine (#1) 2025 , 07/24/2022, 06/13/2021, Additional history exists Diabetes: Blood Sugar Control Test (HGBA1C) 08/08/2025 02/06/2025, 11/01/2024, 12/30/2023, Additional history exists Diabetes: Annual Urine Albumin-Creatinine Ratio (uACR) 11/01/2025 11/01/2024, 12/30/2023 Diabetes: Annual GFR (Glomerular Filtration Rate) 11/01/2025 11/01/2024, 03/22/2024, 03/22/2024, Additional history exists Hypertension/CHF/CAD Annual BMP Blood Test 11/01/2025 11/01/2024, 03/22/2024, 03/22/2024, Additional history exists Diabetes: Annual Retina Eye Exam 12/26/2025 12/26/2024, 12/24/2023 Diabetes: Annual Foot Exam 02/06/2026 02/06/2025, Social Influencers of Health Screening 02/06/2026 02/06/2025 Colorectal Cancer Screening: FIT-DNA (Cologuard) 02/14/2028 02/13/2025, 02/13/2025, 02/13/2025 DTaP,Tdap,and Td Vaccines (2 - Td or Tdap) 12/15/2028 12/15/2018 Cholesterol Screening (Lipid Panel) 11/01/2029 11/01/2024, 12/30/2023, 12/30/2023 COVID-19 Vaccine Discontinued 01/05/2021, 12/14/2020 Depression Screening Completed 10/28/2024 HIV Screening Completed 02/06/2025 Hepatitis C Screening Completed 02/06/2025 HIB Vaccines Aged Out No longer eligi ble based on patient's age to complete this topic HPV Vaccines Aged Out No longer eligi ble based on patient's age to complete this topic Hepatitis A Vaccines Aged Out No long er eligible based on patient's age to complete this topic IPV Vaccines Aged Out No longer eligi ble based on patient's age to complete this topic MMR Vaccines Aged Out No longer eligi ble based on patient's age to complete this topic Meningococcal ACWY Vaccine Aged Out N o longer eligible based on patient's age to complete this topic Meningococcal B Vaccine Aged Out No l onger eligible based on patient's age to complete this topic RSV Immunization Patients Under 20 months Aged Out No longer eligible based on patient's age to complete this topic Varicella Vaccines Aged Out No longer eligible based on patient's age to complete this topic Goals Goal Patient Goal Type Associated Problems Recent Progress Patient-Stated? Author STG (6 visits) Annalise Veloz, PT Note: Pt will demonstrate compliance with HEP Pt will report decreased pain level to < 4/10 at worst Pt will increase Left shoulder ABD AROM to > WFL degrees Pt will increase Left shoulder flexion AROM to > WFL degrees Pt will increase Left shoulder MMT to > 3+/5 Pt will demonstrate fair scapulothoracic rhythm during shoulder ABD AROM Pt will demonstrate improved scapular resting position LTG (12 visits) Annalise Veloz, PT Note: Pt will demonstrate independence with final HEP Pt will report decreased pain level to < 2/10 at worst Pt will increase Left shoulder AROM to > WNL degrees Pt will increase Left shoulder MMT to > 4/5 Pt will demonstrate fair plus scapulothoracic rhythm during shoulder ABD AROM Pt will demonstrate scapular resting position to WNL Procedures Procedure Name Priority Date/Time Associated Diagnosis Comments XR SHOULDER 2+ VIEWS LEFT Routine 03/21/2025 10:31 AM EDT Left shoulder pain, unspecified chronicity XR CERVICAL SPINE 4-5 VIEWS Routine 03/15/2025 9:59 AM EDT Cervical spondylosis LAB COLOGUARD COLON CANCER SCREEN Routine 02/13/2025 4:20 PM EDT Screening for malignant neoplasm of colon HEPATITIS C ANTIBODY Routine 02/06/2025 11:23 AM EDT Screen for STD (sexually transmitted disease) HIV 1, 2 ANTIBODY, P24 ANTIGEN WITH REFLEX TO DIFFERENTIATION Routine 02/06/2025 11:23 AM EDT Screen for STD (sexually transmitted disease) HEMOGLOBIN A1C Routine 02/06/2025 11:23 AM EDT Type 2 diabetes mellitus with diabetic microalbuminuria, without long-term current use of insulin ([facility] V24, [facility] V28) EXTERNAL DIABETIC RETINA EYE EXAM Routine 12/26/2024 2:20 PM EDT MICROALBUMIN CREATININE URINE RATIO Routine 11/01/2024 8:33 AM EDT Type 2 diabetes mellitus with diabetic microalbuminuria, without long-term current use of insulin ([facility] V24, [facility] V28) COMPREHENSIVE METABOLIC PANEL Routine 11/01/2024 8:27 AM EDT Type 2 diabetes mellitus with diabetic microalbuminuria, without long-term current use of insulin ([facility] V24, [facility] V28) LIPID PANEL WITH REFLEX TO DIRECT LDL Routine 11/01/2024 8:27 AM EDT Type 2 diabetes mellitus with diabetic microalbuminuria, without long-term current use of insulin ([facility] V24, [facility] V28) HM DIABETES FOOT EXAM Routine 12/30/2023 from Last 3 Months or Most Recently Relevant to Health Maintenance Results * XR Shoulder 2+ Views Left (03/21/2025 10:31 AM EDT) Anatomical Region Laterality Modality Upper Extremities, Shoulder Left Radi ographic Imaging 03/21/2025 12:2 2 PM EDT Impressions 03/21/2025 12:22 PM EDT There is evidence of calcific tendinitis. Otherwise, normal examination, without acute findings. Code 48884 -------- FINAL REPORT -------- Dictated By: Finn Parikh Dictated Date: 03/21/2025 12:22 ET Assigned Physician: Finn Parikh Reviewed and Electronically Signed By: Finn Parikh Signed Date: 03/21/2025 12:22 ET Workstation ID: [id number] Transcribed By: Self Edit Transcribed Date: 03/21/2025 12:22 ET Narrative 03/21/2025 12:22 PM EDT HISTORY: The patient is a 49-year-old male with left shoulder pain. No history of trauma is provided. FINDINGS: AP, left posterior oblique, and transscapular views of the left shoulder are obtained. The study demonstrates no fracture, dislocation, or arthritic change. A soft tissue calcification is present adjacent to the greater tuberosity of the left humerus consistent with calcific tendinitis. Procedure Note Finn Parikh MD - 03/21/2025 HISTORY: The patient is a 49-year-old male with left shoulder pain. Nohistory of trauma is provided. FINDINGS: AP, left posterior oblique, and transscapular views of the leftshoulder are obtained. The study demonstrates no fracture, dislocation,or arthritic change. A soft tissue calcification is present adjacent tothe greater tuberosity of the left humerus consistent with calcifictendinitis. IMPRESSION: There is evidence of calcific tendinitis. Otherwise, normal examination,without acute findings. Code 65865 -------- FINAL REPORT -------- Dictated By: Finn Parikh Dictated Date: 03/21/2025 12:22 ET Assigned Physician: Finn Parikh Reviewed and Electronically Signed By: Finn Parikh Signed Date: 03/21/2025 12:22 ET Workstation ID: [id number] Transcribed By: Self Edit Transcribed Date: 03/21/2025 12:22 ET us Salo NUNO IMG XR PROCEDURES Final Resul t * XR Cervical Spine 4-5 Views (03/15/2025 9:59 AM EDT) Anatomical Region Laterality Modality Spine, C-spine Radiographic Janice ging 03/15/2025 10:0 5 AM EDT Impressions 03/15/2025 10:09 AM EDT Continued satisfactory appearance following anterior fusion at the C5-6 and C6-7 levels. Reversal of the cervical lordosis consistent with muscle spasm. Alignment is otherwise anatomic and there is no abnormal relative bony motion with flexion and extension. Range of motion is limited likely consequent to surgery. Code 72332 -------- FINAL REPORT -------- Dictated By: Finn Parikh Dictated Date: 03/15/2025 10:05 ET Assigned Physician: Finn Parikh Reviewed and Electronically Signed By: Finn Parikh Signed Date: 03/15/2025 10:09 ET Workstation ID: [id number] Transcribed By: Self Edit Transcribed Date: 03/15/2025 10:05 ET Narrative 03/15/2025 10:09 AM EDT HISTORY: The patient is a 49-year-old male for follow-up of cervical spine surgery which was performed on 04/18/2024. FINDINGS: Lateral views of the cervical spine in neutral, flexion, and extension positions, along with an AP view, are obtained. The study again demonstrates that the patient has undergone anterior fusion with placement of disc spacers at the C5-6 and C6-7 levels, as also seen on the prior examination performed 04/21/2024 as well as on the intraoperative images performed 04/18/2024. The surgical hardware remains well-positioned and intact. Again seen is reversal of the cervical lordosis consistent with muscle spasm. The alignment of the bony structures is otherwise anatomic. There is no abnormal relative bony motion with flexion and extension. Range of motion is limited. No fracture is seen. The remaining disc spaces are well-maintained. There is no prevertebral soft tissue swelling. Procedure Note Finn Parikh MD - 03/15/2025 HISTORY: The patient is a 49-year-old male for follow-up of cervical spinesurgery which was performed on 04/18/2024. FINDINGS: Lateral views of the cervical spine in neutral, flexion, andextension positions, along with an AP view, are obtained. The study againdemonstrates that the patient has undergone anterior fusion with placementof disc spacers at the C5-6 and C6-7 levels, as also seen on the priorexamination performed 04/21/2024 as well as on the intraoperative imagesperformed 04/18/2024. The surgical hardware remains well-positioned andintact. Again seen is reversal of the cervical lordosis consistent withmuscle spasm. The alignment of the bony structures is otherwise anatomic.There is no abnormal relative bony motion with flexion and extension.Range of motion is limited. No fracture is seen. The remaining disc spacesare well-maintained. There is no prevertebral soft tissue swelling. IMPRESSION: Continued satisfactory appearance following anterior fusion at the C5-6and C6-7 levels. Reversal of the cervical lordosis consistent with musclespasm. Alignment is otherwise anatomic and there is no abnormal relativebony motion with flexion and extension. Range of motion is limited likelyconsequent to surgery. Code 48703 -------- FINAL REPORT -------- Dictated By: Finn Parikh Dictated Date: 03/15/2025 10:05 ET Assigned Physician: Finn Parikh Reviewed and Electronically Signed By: Finn Parikh Signed Date: 03/15/2025 10:09 ET Workstation ID: [id number] Transcribed By: Self Edit Transcribed Date: 03/15/2025 10:05 ET Thea NUNO IMG XR PROCEDURES Final Re sult * Cologuard?? colon cancer screening (02/13/2025 4:20 PM EDT) COLOGUARD Negative Negative [facility] Comment: The Cologuard (TM) test was performed on this specimen. NEGATIVE TEST RESULT. A negative Cologuard result indicates a low likelihood that a colorectal cancer (CRC) or advanced adenoma (adenomatous polyps with more advanced pre-malignant features) is present. The chance that a person with a negative Cologuard test has a colorectal cancer is less than 1 in 1500 (negative predictive value >99.9%) or has an advanced adenoma is less than 5.3% (negative predictive value 94.7%). These data are based on a prospective cross-sectional study of 10,000 individuals at average risk for colorectal cancer who were screened with both Cologuard and colonoscopy. (Gabi Decker al, N Engl J Med 2014;370(14):1286- 1297) The normal value (reference range) for this assay is negative. COLOGUARD RE-SCREENING RECOMMENDATION: Periodic colorectal cancer screening is an important part of preventive healthcare for asymptomatic individuals at average risk for colorectal cancer. Following a negative Cologuard result, the [place] [employer] Society and U.S. Multi-Society Task Force screening guidelines recommend a Cologuard re-screening interval of 3 years. References: [place] [employer] Guideline for Colorectal Cancer Screening: https://www.cancer.org/cancer/evhfb-luxypp-gfqpzc/ytznjadlv-xzssdftks-jlndmgb/ac s-rec ommendations.html.; Pradeep DOWNING, Xavier LANG, Harsh CLAY, Colorectal Cancer Screening: Recommendations for Physicians and Patients from the U.S. Multi-Society Task Force on Colorectal Cancer Screening , Am J Gastroenterology 2017; 112:1839-4066. TEST DESCRIPTION: Composite algorithmic analysis of stool DNA-biomarkers with hemoglobin immunoassay. Quantitative values of individual biomarkers are not reportable and are not associated with individual biomarker result reference ranges. Cologuard is intended for colorectal cancer screening of adults of either sex, 45 years or older, who are at average-risk for colorectal cancer (CRC). Cologuard has been approved for use by the U.S. FDA. The performance of Cologuard was established in a cross sectional study of average-risk adults aged 50-84. Cologuard performance in patients ages 45 to 49 years was estimated by sub-group analysis of near-age groups. Colonoscopies performed for a positive result may find as the most clinically significant lesion: colorectal cancer [4.0%], advanced adenoma (including sessile serrated polyps greater than or equal to 1cm diameter) [20%] or non- advanced adenoma [31%]; or no colorectal neoplasia [45%]. These estimates are derived from a prospective cross-sectional screening study of 10,000 individuals at average risk for colorectal cancer who were screened with both Cologuard and colonoscopy. (Gabi Decker al, N Engl J Med 2014;370(14):7509-2269.) Cologuard may produce a false negative or false positive result (no colorectal cancer or precancerous polyp present at colonoscopy follow up). A negative Cologuard test result does not guarantee the absence of CRC or advanced adenoma (pre-cancer). The current Cologuard screening interval is every 3 years. ([place] [employer] and U.S. Multi-Society Task Force). Cologuard performance data in a 10,000 patient pivotal study using colonoscopy as the reference method can be accessed at the following location: www.mycirQle/results. Additional description of the Cologuard test process, warnings and precautions can be found at www.cologuard.com. Stool 02/13/2025 4:20 PM EDT 02/14/2025 12:58 PM EDT [facility] MOLECULAR DIAGNOSTICS ORDER NHAN Final Result Performing Organization Address City/[facility]/ZIP Co de Phone Number [facility] [address] [place] [address] [facility] [address] [place] [place] [address] * Hepatitis C antibody (02/06/2025 11:23 AM EDT) Pathologist [facility] Hepatitis C Antibody Negative Negative LAB CHEMISTRY METHOD 02/06/2025 4:27 PM EDT [facility] Blood Venous blood specimen / Unknown Venipuncture / Unknown 02/06/2025 11:23 AM EDT 02/06/2025 11:23 AM EDT Brook NUNO LAB BLOOD ORDERABLES Final Resu lt Performing Organization Address [facility] Co de Phone Number [facility] [address] [place] [address], * HIV 1,2 antibody, p24 antigen with reflex to differentiation (02/06/2025 11:23 AM EDT) Pathologist [facility] HIV Combo AB/AG Negative Negative LAB CHEMISTRY METHOD 02/06/2025 4:28 PM EDT [facility] Blood Venous blood specimen / Unknown Venipuncture / Unknown 02/06/2025 11:23 AM EDT 02/06/2025 11:23 AM EDT Narrative [facility] - 02/06/2025 4:28 PM EDT This assay is a 4th generation assay allowing for earlier detection of HIV infection by detecting the presence of the HIV-1 p24 antigen as well as the traditional antibodies to HIV type 1 (including group O) and type 2. Use of a 4th generation assay is the current CDC recommendation for HIV screening. [facility] BLOOD ORDERABLES Final Resu lt Performing Organization Address [facility]/ZIP Co de Phone Number [facility] [address] [place] [address], [place] [phone] * (ABNORMAL) Hemoglobin A1c (02/06/2025 11:23 AM EDT) Hemoglobin A1C 7.1(H) <6.5 % LAB CHEMISTRY METHOD 02/06/2025 2:50 PM EDT [facility] Mean Bld Glu Estim. 157 mg/dL LAB CHEMISTRY METHOD 02/06/2025 2:50 PM EDT [facility] Blood Venous blood specimen / Unknown Venipuncture / Unknown 02/06/2025 11:23 AM EDT 02/06/2025 11:23 AM EDT us Brook NUNO LAB BLOOD ORDERABLES Final Resu lt Performing Organization Address [facility]/ZIP Co de Phone Number [facility] [address] [place] [address], [place] [phone] * External Diabetic Retina Eye Exam Report (12/26/2024 2:20 PM EDT) Anatomical Region Laterality Modality Ultrasound Historical Provider MD BOWLING US PROCEDURES Final R esult * (ABNORMAL) Microalbumin creatinine urine ratio (11/01/2024 8:33 AM EDT) Creatinine, Urine 141.0 mg/dL LAB CHEMISTRY METHOD 11/01/2024 9:30 AM EDT [facility] Microalb, Ur 198.0(H) 0.0 - 29.0 mg/L LAB CHEMISTRY METHOD 11/01/2024 9:30 AM EDT [facility] Microalb/Crea t Ratio 140(H) <30 mg/g creat LAB CHEMISTRY METHOD 11/01/2024 9:30 AM EDT [facility] Urine Urine specimen obtained by clean catch procedure / Unknown Non-blood Collection / Unknown 11/01/2024 8:33 AM EDT 11/01/2024 8:36 AM EDT us Viky Phoenix PA LAB URINE ORDERABLES Final Resul t [facility] [address] [place] [address], [place] [phone] * (ABNORMAL) Lipid panel with reflex to direct LDL (11/01/2024 8:27 AM EDT) Cholesterol 152 0 - 200 mg/dL LAB CHEMISTRY METHOD 11/01/2024 9:18 AM EDT [facility] Triglycerides 238(H) 0 - 150 mg/dL LAB CHEMISTRY METHOD 11/01/2024 9:18 AM [facility] HDL 37(L) >=40 mg/dL LAB CHEMISTRY METHOD 11/01/2024 9:18 AM T [facility] LDL Calculated 67 0 - 100 mg/dL LAB CHEMISTRY METHOD 11/01/2024 9:18 AM [facility] VLDL Cholesterol Dino 47.6 mg/dL LAB CHEMISTRY METHOD 11/01/2024 9:18 AM EDT [facility] Non HDL Chol. (LDL+VLDL) 115 <145 mg/dL LAB CHEMISTRY METHOD 11/01/2024 9:18 AM T [facility] Chol/HDL Ratio 4.1 0.0 - 4.4 LAB CHEMISTRY METHOD 11/01/2024 9:18 AM [facility] Blood Venous blood specimen / Unknown Venipuncture / Unknown 11/01/2024 8:27 AM EDT 11/01/2024 8:36 AM EDT us Viky Garibay PA LAB BLOOD ORDERABLES Final Resul t [facility] [address] [place] [address], * (ABNORMAL) Comprehensive metabolic panel (11/01/2024 8:27 AM EDT) Sodium 138 133 - 145 mmol/L LAB CHEMISTRY METHOD 11/01/2024 9:18 AM [facility] Potassium 3.7 3.5 - 5.5 mmol/L LAB CHEMISTRY METHOD 11/01/2024 9:18 AM [facility] Chloride 103 96 - 110 mmol/L LAB CHEMISTRY METHOD 11/01/2024 9:18 AM [facility] CO2 30 21 - 32 mmol/L LAB CHEMISTRY METHOD 11/01/2024 9:18 AM [facility] Anion Gap 5 3 - 11 LAB CHEMISTRY METHOD 11/01/2024 9:18 AM [facility] Glucose 135(H) 70 - 100 mg/dL LAB CHEMISTRY METHOD 11/01/2024 9:18 AM [facility] BUN 22 5 - 25 mg/dL LAB CHEMISTRY METHOD 11/01/2024 9:18 AM [facility] Creatinine 1.02 0.70 - 1.30 mg/dL LAB CHEMISTRY METHOD 11/01/2024 9:18 AM [facility] eGFR 91 >=60 mL/min/1. 73m2 LAB CHEMISTRY METHOD 11/01/2024 9:18 AM [facility] Comment:Calculation based on the Chronic Kidney Disease Epidemiology Collaboration (CKD-EPI) equation refit without adjustment for race. BUN/Creatinine Ratio 21.6 LAB CHEMISTRY METHOD 11/01/2024 9:18 AM [facility] Calcium 9.5 8.5 - 10.5 mg/dL LAB CHEMISTRY METHOD 11/01/2024 9:18 AM EDT [facility] AST (SGOT) 24 10 - 42 unit/L LAB CHEMISTRY METHOD 11/01/2024 9:18 AM T [facility] ALT (SGPT) 36 10 - 60 unit/L LAB CHEMISTRY METHOD 11/01/2024 9:18 AM EDT [facility] Alkaline Phosphatase 99 42 - 121 unit/L LAB CHEMISTRY METHOD 11/01/2024 9:18 AM EDT [facility] Total Protein 7.7 6.0 - 8.0 g/dL LAB CHEMISTRY METHOD 11/01/2024 9:18 AM T [facility] Albumin 3.7 3.2 - 5.0 g/dL LAB CHEMISTRY METHOD 11/01/2024 9:18 AM [facility] Total Bilirubin 0.3 0.0 - 1.4 mg/dL LAB CHEMISTRY METHOD 11/01/2024 9:18 AM EDT [facility] Blood Venous blood specimen / Unknown Venipuncture / Unknown 11/01/2024 8:27 AM EDT 11/01/2024 8:36 AM EDT us Viky Phoenix NUNO LAB BLOOD ORDERABLES Final Resul t [facility] [address] [place] [address], * Diabetes Foot Exam (12/30/2023) Diabetes: Annual Foot Exam Abstracted us Historical Provider MD HEALTH MAINTENANCE Final Result from Last 3 Months or Most Recently Relevant to Health Maintenance Insurance [facility] Advance Directives Documents on File Type Date Recorded 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
--- OUTSIDE RECORDS SUMMARY | 2025-05-10 14:23 | XMS_ITS | Clinical Summary ---
Author Organization [facility] Facility Address [address] [place] [id number] Care Team Providers Care Mingler Operator Name Role Phone Unavailable Primary Care Provider Unavailabl e Social History Tobacco Use Types Packs/Day Years Used Date Smoking Tobacco: Never Assessed Sex and Gender Information Value Date Recorded Sex Assigned at Not on file Legal Sex Male 3:31 PM EDT Gender Identity Not on file Sexual Orientation Not on file Last Filed Vital Signs Vital Sign Reading Time Taken Comments Blood Pressure 160/78 06/11/2023 1:15 PM EDT Pulse 67 06/11/2023 1:15 PM EDT Temperature - - Respiratory Rate 18 06/11/2023 1:15 PM EDT Oxygen Saturation 98% 06/11/2023 1:15 PM EDT Inhaled Oxygen Concentration - - Weight - - Height - - Body Mass Index - - Plan of Treatment Health Maintenance Due Date Last Done Comments Hepatitis B Vaccine (1 of 3 - 19+ 3-dose series) 1996 Diabetes: Hemoglobin A1C 06/03/2023 Diabetes: Ophthalmology Exam 06/03/2023 Diabetes: Pedal Pulse Checked 06/03/2023 Diabetes: Sensory Foot Exam 06/03/2023 Diabetes: Visual Foot Exam 06/03/2023 Influenza Vaccine (#1) 2025 2, 06/13/2021, 08/31/2017 Pneumococcal Vaccine: Peds ( 0 to 5 Years) and At-Risk Patients (6 to 49 Years) Aged Out 06/13/2021 No longer eligi ble based on patient's age to complete this topic Insurance [facility] Medicaid [facility] Medicaid
--- OUTSIDE RECORDS SUMMARY | 2025-05-10 14:23 | XMS_ITS | Encounter Summary ---
Author Organization [employer] Address [address] [place] [address] Care Team Providers Care Relay Checker Name Role Phone Bailey Driver MD Primary Care Prov ider Reason for Visit * Reason Onset Date Comments Medication Problem 05/05/2025 Encounter Details Date Type Department Care Team ([facility] st Contact Info) Description 05/05/2025 Telephone Adult Medicine [facility] [address] [place] [address] Bailey Driver MD [address] [place] [address] Social History Tobacco Use Types Packs/Day Years Used Date Smoking Tobacco: Never Smokeless Tobacco: Never Alcohol Use Standard Drinks/Week Comments No 0 [...] care for your loved ones. 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 [...] Orientation Straight 07/04/2024 7: 01 AM EST documented as of this encounter Ordered Prescriptions Prescription Sig Dispense Quantity Refills Last Filled Start Date End Date metFORMIN XR (GLUCOPHAGE-XR) 500 mg 24 hr tablet Take 1 tablet (500 mg total) by mouth 1 (one) time each day. Do not crush, chew, or split. 90 each 3 05/05/2025 documented in this encounter Progress Notes * Lou Mijares - 05/05/2025 2:39 PM EDT Medication Problem: What is the name of the medication patient is having a problem with?: Disp Refills Start End metFORMIN XR (GLUCOPHAGE-XR) 500 mg 24 hr tablet 90 each 2 04/20/2025 -- Sig: Do not crush, chew, or split. Sent to pharmacy as: metFORMIN ER 500 mg tablet,extended release 24 hr (GLUCOPHAGE-XR) E-Prescribing Status: Receipt confirmed by pharmacy (04/20/2025 12:29 PM EDT) What is the problem?: pharmacy needs clarification on this prescription Who is calling about the problem? : The patient Is this a NEW medication?: no How long has the patient been taking this medication? Who prescribed this medication for the patient? Bailey Driver MD Who is patients PCP?: Bailey Arguello MD Payor: [facility] [employer] PL[employer] / Plan: [employer]ICA[employer] / Product Type: *No Product type* / documented in this encounter Plan of Treatment Upcoming Encounters Date Type Department Care Team (Late st Contact Info) Description 05/23/2025 9:00 AM EDT Medication Management Adult Medicine [address] [phone] Mona Maya, PharmD [address] [place] [phone] 06/16/2025 10:15 AM EDT Ancillary Procedure [address] [phone] 06/16/2025 11:00 AM EDT Office Visit [address] [phone] Elsie Aldana MD [address] [place] [phone] 07/13/2025 1:00 PM EST Office Visit Adult Medicine [address] [phone] Bailey Driver MD [address] [place] [address] documented as of this encounter Goals Goal Patient Goal Type Associated Problems Recent Progress Patient-Stated? Author STG (6 visits) Annalise Veloz PT Note: Pt will demonstrate compliance with [...] scapular resting position LTG (12 visits) Annalise Veloz PT Note: Pt will demonstrate independence with final HEP Pt will report decreased pain level to < 2/10 at worst Pt will increase Left shoulder AROM to > WNL degrees Pt will increase Left shoulder MMT to > 4/5 Pt will demonstrate fair plus scapulothoracic rhythm during shoulder ABD AROM Pt will demonstrate scapular resting position to WNL documented as of this encounter Visit Diagnoses Not on filedocumented in this encounter Discontinued Medications Medication Sig Discontinue Reason Start Date End Da te metFORMIN XR (GLUCOPHAGE-XR) 500 mg 24 hr tablet Do not crush, chew, or split. Reorder 04/20/2025 05/05/2025 documented as of this encounter Additional Health Concerns Assessment Noted Time PHQ-9 Depression Total Score: 0 10/29/19 25 2:02 PM EST documented as of this encounter Care Teams Relay Checker Relationship Specialty Start Date End Date Bailey Driver MD [address], [place] PCP - General Internal Medicine 03/24/22 documented as of this encounter
--- OUTSIDE RECORDS SUMMARY | 2025-05-10 14:23 | XMS_ITS | Clinical Summary ---
Author Organization Active [facility] Address [address] [facility] [address] [place] [address] Care Team Providers Care Floatman Name Role Phone Unavailable Primary Care Provider Unavailabl e Allergies No known active allergies Medications NIFEdipine CC (Adalat CC) 90 MG 24 hr tablet Take 1 tablet by mouth at bedtime. 08/19/2023 Active losartan (Cozaar) 100 MG tablet Take 100 mg by mouth. 07/21/2019 Active buPROPion XL (Wellbutrin XL) 150 MG 24 hr tablet Take 150 mg by mouth in the morning. Active cholecalciferol (Vitamin D-3) 50 MCG (1999 UT) tablet Take by mouth in the morning. Active dulaglutide (Trulicity) 0.75 MG/0.5ML solution pen-injector Inject 0.75 mg under the skin 1 (one) time per week. 09/30/2023 Active NIFEdipine CC (Adalat CC) 30 MG 24 hr tablet Take 90 mg by mouth. 03/29/2020 Active Social History Tobacco Use Types Packs/Day Years Used Date Smoking Tobacco: Never Smokeless Tobacco: Never Tobacco Cessation:Counseling Given: Not Answered Sex and Gender Information Value Date Recorded Sex Assigned at Male 06/23/2022 10:32 AM EDT Legal Sex Male 10:32 AM EDT Gender Identity Male 06/23/2022 10:32 AM EDT Sexual Orientation Straight 06/23/2022 10 :32 AM EDT Last Filed Vital Signs Vital Sign Reading Time Taken Comments Blood Pressure 174/92 12/02/2023 11:37 AM EDT Pulse 65 12/02/2023 11:37 AM EDT Temperature - - Respiratory Rate - - Oxygen Saturation - - Inhaled Oxygen Concentration - - Weight - - Height - - Body Mass Index - - Plan of Treatment Health Maintenance Due Date Last Done Comments CT Colonography 1977 Colonoscopy 1977 Colorectal Cancer Screening 1977 Depression Screening 1977 FIT DNA/Cologuard 1977 FIT 1977 FOBT 1977 HIV Screening 1977 Lipid Panel 1977 SDOH Screening 1977 Sigmoidoscopy 1977 Disability Screening 1977 Alcohol/Substance Use Screening 1989 Family Planning (PISQ) 1992 Hepatitis C Screening 1995 Hepatitis B Vaccines (1 of 3 - 19+ 3-dose series) 1996 Dental Oral Exam 11/18/2022 05/20/2022, , 04/22/2019 Dental Prophylaxis 11/18/2022 05/20/2022, 0 10/21/2021, 01/10/2021 Dental X-Ray: Bitewings 12/02/2024 12/02/19 24, 05/20/2022, 01/10/2021, Additional history exists Tobacco Screening 01/04/2025 01/05/2024 COVID-19 Vaccine ( season) 2025 01/05/2021, 12/14/2020 Influenza Vaccine (#1) 2025 , 06/13/2021, 07/16/2019, Additional history exists Dental X-Ray: Full Mouth 12/02/2026 024, 05/20/2022, 04/22/2019 Zoster Vaccines (1 of 2) 2027 DTaP/Tdap/Td Vaccines (2 - Td or Tdap) 12/15/2028 12/15/2018 RSV Patients and Patients Aged 60 years or older (1 - 1-dose 75+ series) 2052 Pneumococcal Vaccine: Pediatrics (0 to 5 Years) and At-Risk Patients (6 to 49) Years Aged Out 06/13/2021 No longer eligible based on patient's age to complete this topic HIB Vaccines Aged Out No longer eligi [...] patient's age to complete this topic Meningococcal Vaccine Aged Out No colton marie eligible based on patient's age to complete this topic RSV under 20 months Aged Out No longe r eligible based on patient's age to complete this topic Rotavirus Vaccines Aged Out No longer eligible based on patient's age to complete this topic Procedures Procedure Name Priority Date/Time Associated Diagnosis Comments INTRAORAL - COMPLETE SERIES OF RADIOGRAPHIC IMAGES Routine 12/02/2023 11:00 AM EDT PROPHYLAXIS - ADULT Routine 05/20/2022 1 2:00 AM EDT PERIODIC ORAL EVALUATION - ESTABLISHED PATIENT Routine 05/20/2022 12:00 AM EDT from Last 3 Months or Most Recently Relevant to Health Maintenance Insurance [facility] [employer] STAND ADULT [address] [place] [address]
== END 2025-05-10 11:09 | disposition home or self-care (01) ==
LOC: HO.NEURO 11:08
PROVIDERS: PCP Internal Medicine; Visit Provider Physician Assistant
DX: R20.2 Paresthesia of skin (principal)
CPT/HCPCS: 95886; 95909

== ENCOUNTER → 2025-05-10 11:13 | Outpatient (BNV) | payer OTHER, SELFPAY | PROVIDERS: PCP Internal Medicine; Visit Provider Physical Medicine & Rehabilitation | DX: R20.2 Paresthesia of skin (principal) | CPT/HCPCS: 95886; 95909 ==